=== PATIENT | male | born 1980 | race Caucasian/White ===

== ENCOUNTER 2018-07-14 06:12 | Emergency (ER) | payer OTHER ==
[~2018-07-14] VITALS: Ht 170.2 cm; Wt 68.5 kg
[2018-07-14] MEDS ORDERED: THIAMINE HCL100 MG PO (06:19)
[2018-07-14] MEDS ORDERED: MULTIVITAMINS1 EAC7 PO (06:19)
[2018-07-14] MEDS ORDERED: FOLIC ACID1 MG PO (06:20)
[2018-07-14] MEDS ORDERED: MELATONIN3 MG PO (06:21)
[2018-07-14] MEDS ORDERED: TRAZODONE HCL100 MG PO (06:21)
[2018-07-14] MEDS ORDERED: QUETIAPINE FUM100 MG PO (06:23)
[2018-07-14] MEDS ORDERED: GABAPENTIN600 MG PO (06:23)
[2018-07-14] MEDS ORDERED: HYDROXYZINE PAM50 MG PO (06:23)
[2018-07-14] MEDS ORDERED: ONDANSETRON HCL8 MG PO (06:24)
[2018-07-14] MEDS ORDERED: IBUPROFEN200 MG PO (06:25)
[2018-07-14] MEDS ORDERED: FLUOXETINE HCL60 MG PO (06:26)
[2018-07-14] MEDS ORDERED: TYLENOL EXTRA500 MG PO (06:26)
[2018-07-14] MEDS ORDERED: CHLORDIAZEPOXID25 MG PO (06:28)
--- OUTSIDE RECORDS SUMMARY | 2018-07-14 07:50 | XMS ---
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 Fadi has no Care Guidelines for this patient. Shanti VISIT COUNT (12 MO.) [address] [facility] Wong TOTAL 5 NOTE: Visits indicate total known visits. ED/C VISIT TRACKING (12 MO.) 07/14/2018 06:13 [facility] [place] TYPE: Emergency COMPLAINT: - BACK PAIN NON INJURY 05/29/2018 12:12 [facility] [place] TYPE: Emergency DIAGNOSES: 0. THOUGHTS OF HARMING SELF 05/18/2018 21:12 [facility] [place] TYPE: Emergency DIAGNOSES: 0. OD VIA TVP 01/18/2018 11:03 [facility] [place] [facility] TYPE: Emergency DIAGNOSES: 0. LT BOTTOM JAW PAIN 12/11/2017 12:55 [facility] [place] TYPE: Emergency DIAGNOSES: 0. UTI SYMPTOMS INPATIENT VISIT TRACKING (12 MO.) 05/18/2018 23:[facility] [facility] DIAGNOSES: 0. DULOXITINE OVERDOSE [email or web address]
== END 2018-07-14 07:28 | disposition home or self-care (01) ==
LOC: ED 06:12
DX: M54.5 Low back pain (principal); Z87.891 Personal history of nicotine dependence; Z79.899 Other long term (current) drug therapy
CPT/HCPCS: 81001; 96374; 99283-25; J1885

== ENCOUNTER 2018-07-31 18:51 | Emergency (ER) | payer OTHER ==
[~2018-07-31] VITALS: Ht 170.2 cm; Wt 68.5 kg
[~2018-07-31 18:51] MED LIST: CHLORDIAZEPOXID25 MG PO; FLUOXETINE HCL60 MG PO; FOLIC ACID1 MG PO; GABAPENTIN600 MG PO; HYDROXYZINE PAM50 MG PO; IBUPROFEN200 MG PO; MELATONIN3 MG PO; MULTIVITAMINS1 EAC7 PO; ONDANSETRON HCL8 MG PO; QUETIAPINE FUM100 MG PO; THIAMINE HCL100 MG PO; TRAZODONE HCL100 MG PO; TYLENOL EXTRA500 MG PO
--- OUTSIDE RECORDS SUMMARY | 2018-07-31 18:54 | XMS ---
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 Fadi has no Care Guidelines for this patient. Shanti VISIT COUNT (12 MO.) [address] [facility] Wong TOTAL 6 NOTE: Visits indicate total known visits. ED/C VISIT TRACKING (12 MO.) 07/31/2018 18:52 [facility] [place] TYPE: Emergency COMPLAINT: - DETOX 07/14/2018 06:13 [facility] [place] TYPE: Emergency COMPLAINT: - BACK PAIN NON INJURY DIAGNOSES: - Muscle spasm of calf - Personal history of nicotine dependence - Muscle spasm of back - Other fci (current) drug therapy - Low back pain 05/29/2018 12:12 [facility] KAN [place] TYPE: Emergency DIAGNOSES: 0. THOUGHTS OF HARMING SELF 05/18/2018 21:12 [facility] KAN [place] TYPE: Emergency DIAGNOSES: 0. OD VIA TVP 01/18/2018 11:03 [facility] TYPE: Emergency DIAGNOSES: 0. LT BOTTOM JAW PAIN 12/11/2017 12:55 [facility] DIAGNOSES: 0. UTI SYMPTOMS INPATIENT VISIT TRACKING (12 MO.) 05/18/2018 23:10 [facility] DIAGNOSES: 0. DULOXITINE OVERDOSE [email or web address]
[2018-07-31] MEDS ORDERED: LITHATE20 MG PO (19:04)
== END 2018-07-31 21:37 | disposition home or self-care (01) ==
LOC: ED 18:51
DX: F10.239 Alcohol dependence with withdrawal, unspecified (principal); F15.23 Other stimulant dependence with withdrawal; F17.200 Nicotine dependence, unspecified, uncomplicated; Z79.899 Other long term (current) drug therapy
CPT/HCPCS: 99283